=== PATIENT | female | born 1990 | race Asian ===

== ENCOUNTER 2017-06-02 10:30 | Day surgery (SDC) | payer OTHER ==
--- NOTE | 2017-05-20 12:52 | HISTORY AND PHYSICAL E ---
History and Physical NAME: RIGO MORALES : 1990 AGE: 27Y ADMITTED: 06/02/2017 ROOM: DATE OF : 1990 CHIEF COMPLAINT: Abdominal pain. Ulcerated lesion in the mouth, being followed by the dentist. SURGERIES: Appendectomy, 2005. SOCIAL HISTORY: Does not smoke. Drinks occasional wine. FAMILY HISTORY: Father had cancer of the cervical neck. Patient is not sure exactly what kind of cancer, most likely lymphoma. Mom's history is negative. , 2 children. REVIEW OF SYSTEMS: HEAD, EYES, EARS, NOSE, THROAT: Lesion in the mouth, aphthous. RESPIRATORY: Clear. Negative for lung disease. CARDIAC: Negative. GASTROINTESTINAL: Abdominal pain, hunger pain. ONCOLOGY/HEMATOLOGY: Negative. PHYSICAL EXAMINATION: GENERAL: Pleasant, alert, oriented 28-year-old, in no acute distress, except pain in the ulcer in the mouth. HEAD, EYES, EARS, NOSE, THROAT: Negative. LUNGS: Clear. CARDIAC: Normal size. ABDOMEN: Tender in the epigastric area. NEUROLOGIC: Negative. CONCLUSION: Abdominal pain. PLAN: Start patient on Protonix. Gallbladder ultrasound. Arrange for upper endoscopy, scheduled for 06/02. DICTATING PHYSICIAN: TIBURCIO NUNEZ M.D. [id number] [id number] PHY#: [id number] ID: [id number] JOB#: [id number] ACCT: [id number] cc:TIBURCIO NUNEZ M.D. >
[~2017-06-02 10:30] MED LIST: EPINEPHRINE INJ 1 MG/10 ML DISP.SYRIN ONE; FENTANYL CITRATE INJ/PF 100 MCG/2 ML AMPUL ONE; FLUMAZENIL INJ 0.5 MG/5 ML VIAL ONE; GLUCAGON,HUMAN RECOMB 1 MG INJ ONE; GLYCOPYRROLATE INJ 0.4 MG/2 ML VIAL ONE; NALOXONE HCL INJ/PF 0.4 MG/1 ML SDV ONE; ONDANSETRON HCL INJ/PF 4 MG/2 ML SDV ONE
[2017-06-02] MEDS: MIDAZOLAM 2 MG/2 ML INJ ONE ×2 (11:16→11:20)
--- NOTE | 2017-06-02 11:52 | OPERATIVE REPORT E ---
Operative Report NAME: RIGO MORALES : 1990 AGE: 27Y DATE OF SURGERY: ROOM: PREOPERATIVE DIAGNOSIS: ABDOMINAL PAIN. POSTOPERATIVE DIAGNOSIS: 1. ESOPHAGITIS, MILD. 2. GASTRITIS, MILD. 3. DUODENITIS, MILD. OPERATION: 1. ESOPHAGOSCOPY. 2. GASTROSCOPY. 3. DUODENOSCOPY. SURGEON: TIBURCIO NUNEZ M.D. ANESTHESIA: Versed 4, fentanyl 100. TISSUE REMOVED OR ALTERED: Gastric biopsy for H. pylori. DESCRIPTION OF PROCEDURE: Baby scope passed under guided vision. No difficulties. ESOPHAGOSCOPY: Junction at 36 cm. Mild esophagitis. No hernias. No ulcers. Mild esophagitis. GASTROSCOPY: No ulcers. Mild gastritis. DUODENOSCOPY: No ulcers. Mild duodenitis. CONCLUSION: 1. ESOPHAGITIS. 2. GASTRITIS. 3. DUODENITIS. 4. NO ULCERS. 5. NO BLEEDING. PLAN: 1. Hold aspirin and nonsteroidal. 2. Continue Protonix. 3. Soft bland diet. 4. Awaiting biopsy results. DICTATING PHYSICIAN: TIBURCIO NUNEZ M.D. 1265M [id number] PHY#: [id number] ID: [id number] JOB#: [id number] ACCT: [id number] cc:[facility] TIBURCIO NUNEZ M.D. >
[2017-06-02 12:18] LABS: ABSOLUTE EOSINOPHILS # (AUTO) 0.1 10^3/uL (0.0-0.6); ABSOLUTE LYMPHOCYTES (AUTO) 1.5 10^3/uL (0.5-4.7); ABSOLUTE MONOCYTES (AUTO) 0.3 10^3/uL (0.1-1.4); ABSOLUTE NEUT (AUTO) 3.1 10^3/uL (1.7-8.2); BASOPHILS % (AUTO) 0.4 % (0-2); EOSINOPHILS % (AUTO) 1.3 % (0-6); HEMATOCRIT 38.4 % (36.0-47.0); HEMOGLOBIN 13.1 g/dL (12.0-15.5); HGB HCT DIFFERENCE 0.9; LYMPHOCYTES % (AUTO) 30.1 % (13-45); MEAN CORPUSCULAR HEMOGLOBIN 31.4 pg (27.0-33.4); MEAN CORPUSCULAR HGB CONC 34.2 g/dL (32.0-36.0); MEAN CORPUSCULAR VOLUME 92 fl (80-97); MONOCYTES % (AUTO) 6.9 % (3-13); RED BLOOD COUNT 4.18 10^6/uL (3.72-5.28); RED CELL DISTRIBUTION WIDTH 12.3 % (11.5-14.0); SEGMENTED NEUTROPHILS % (AUTO) 61.3 % (42-78)
[2017-06-02 12:51] LABS: ALANINE AMINOTRANSFERASE 30 U/L (9-52); ALBUMIN 4.1 g/dL (3.5-5.0); ALKALINE PHOSPHATASE 32 U/L (38-126); AMYLASE 66 U/L (30-110); ANION GAP 12 (5-19); ASPARTATE AMINO TRANSFERASE 20 U/L (14-36); BILIRUBIN,DIRECT 0.2 mg/dL (0.0-0.4); BILIRUBIN,TOTAL 0.3 mg/dL (0.2-1.3); BLOOD UREA NITROGEN 3 mg/dL (7-20); CARBON DIOXIDE 27 mmol/L (22-30); CHLORIDE 105 mmol/L (98-107); CREATININE RESULT 0.45 mg/dL (0.52-1.25); GLUCOSE 85 mg/dL (75-110); LIPASE 68.6 U/L (23-300); POTASSIUM 3.7 mmol/L (3.6-5.0); SODIUM 143.7 mmol/L (137-145); TOTAL PROTEIN 6.5 g/dL (6.3-8.2)
--- NOTE | 2017-06-02 12:51 | DISCHARGE SUMMARY E ---
Discharge Summary NAME: RIGO MORALES : 1990 AGE: 27Y ADMITTED: 06/02/2017 DISCHARGED: 06/02/2017 HOSPITAL COURSE: A 27-year-old female presented with abdominal pain. Upper endoscopy shows no ulcers. Mild esophagitis, gastritis, duodenitis. DISCHARGE PLAN: Continue Protonix. Lab studies. Patient to see us in the office in the next few days. FINAL DIAGNOSES: 1. Mild esophagitis. 2. Mild gastritis. 3. Mild duodenitis. DICTATING PHYSICIAN: TIBURCIO NUNEZ M.D. [id number] [id number] PHY#: [id number] ID: [id number] JOB#: [id number] ACCT: [id number] cc:[facility] TIBURCIO NUNEZ M.D. >
[2017-06-02 12:54] LABS: ERYTHROCYTE SEDIMENTATION RATE 8 mm/hr (0-20)
[2017-06-02 13:05] LABS: C-REACTIVE PROTEIN < 5.0 mg/L (<10.0)
[2017-06-02 13:57] VITALS: BP 104/60
== END 2017-06-02 13:00 | disposition home or self-care (01) ==
LOC: END 10:30
PROVIDERS: ATTEND Specialist
PROC: 0DB68ZX Excision of Stomach, Via Natural or Artificial Opening Endoscopic, Diagnostic (ICD-10-PCS; principal; 2017-06-02 11:00)
DX: K20.9 Esophagitis, unspecified (principal); K31.9 Disease of stomach and duodenum, unspecified; K29.80 Duodenitis without bleeding
CPT/HCPCS: 43239; 36415; 82150; 83690; 85025; 85652; 86140; 80053; 88342 ×2; 88305 ×2; J2250; J3010; J1610; J2405; J0171; J2310; J3490